=== PATIENT | female | born 1975 | race Caucasian/White ===

== ENCOUNTER 2019-05-20 12:20 | Emergency (ER) | payer OTHER, SELFPAY ==
--- NOTE | ~2019-05-20 | XR_ITS ---
XR ankle LT min 3V, XR tibia fibula LT 2V 05/20/2019 12:57 INDICATION: Right leg pain PROCEDURE: 4 views left ankle and 2 views left tibia/fibula COMPARISON: No prior studies for comparison. FINDINGS: Fracture, dislocation or subluxation is not identified. There are small degenerative calcan eal enthesophytes. The soft tissues appear within normal limits. No foreign bodies are identified. IMPRESSION: 1: NO ACUTE BONE OR JOINT ABNORMALITY IDENTIFIED. Reviewed, dictated and finalized at location A. FOLDING MACHINE OPERATOR IMPRESSION: 1: NO ACUTE BONE OR JOINT ABNORMALITY IDENTIFIED.
[2019-05-20 12:31] VITALS: BP 122/78; PULSE 116; RESP 18; TEMP 36.5; O2SAT 98
--- NOTE | 2019-05-20 12:50 | ED.LOWEXIN ---
HPI - Extremity Injury (Lower) General Chief Complaint: Extremity Injury, Lower Stated Complaint: L ANKLE INJURY Time Seen by Provider: 05/20/19 12:31 Source: patient Mode of arrival: wheelchair Limitations: no limitations History of Present Illness HPI Narrative: This is a 43 year old female that presents to the ER for left lower extremity injury just prior to arrival. Reports she was getting out of bed and tripped and fell forward. Reports hitting the back of her leg on the metal bed frame. Reports since she has had pain around her Achilles tendon. Denies decreased ROM or numbness. Related Data Home Medications Medication Instructions Recorded Confirmed insulin glargine [Lantus U-100 SUBCUT 05/20/19 Insulin] lisinopril 05/20/19 metformin mg 05/20/19 sertraline mg 05/20/19 Allergies Allergy/AdvReac Type Severity Reaction Status Date / Time No Known Allergies Allergy Unverified 05/20/19 12:34 Review of Systems Review of Systems: Narrative: CONSTITUTIONAL: Denies fever SKIN: Denies rash MUSCULOSKELETAL: Reports joint pain, and myalgia. NEUROLOGIC: Denies numbness, or weakness. All systems reviewed & are unremarkable except as noted in HPI and below PMFSH Past Medical History Medical History (Updated 05/20/19 @ 14:43 by Lucie Pryor PA-C) History of anxiety History of hypertension Surgical History Surgical History (Updated 05/20/19 @ 13:33 by Lucie Pryor PA-C) History of dilation and curettage History of tubal ligation Social History Social History (Updated 05/20/19 @ 13:33 by Lucie Pryor PA-C) Smoking status: Never smoker Gender identity (if verbalized by the patient): Female Exam Narrative: Exam Narrative: GENERAL: Well-appearing, well-nourished, and in no acute distress. HEAD: Normocephalic, atraumatic. EYES: EOMI. EXTREMITIES: Normal range of motion. Mild edema and bruising of left Achilles tendon at insertion. Obvious defect of Achilles tendon. No plantar flexion noted on Inman test SKIN: Warm, dry, no rash. NEURO: No focal deficits. Alert and oriented x3. PSYCH: Normal mood and affect Course Consultations Consultation #1: Spoke with Dr. Dixon about patient work-up will follow-up in clinic Date: 05/20/19 Time: 14:42 Vital Signs Vital signs: Vital Signs Temperature 97.7 F 05/20/19 12:31 Pulse Rate 116 H 05/20/19 12:31 Respiratory Rate 18 05/20/19 12:31 Blood Pressure 122/78 05/20/19 12:31 Pulse Oximetry 98 05/20/19 12:31 Temperature 97.7 F 05/20/19 13:42 Pulse Rate 116 H 05/20/19 12:31 Respiratory Rate 18 05/20/19 12:31 Blood Pressure 122/78 05/20/19 12:31 Pulse Oximetry 98 05/20/19 12:31 MDM - Extremity Injury (Lower) MDM Narrative Medical decision making narrative: Patient presents emergency department for left Achilles tendon pain and swelling after injury today. Mild edema and bruising around the insertion of the Achilles tendon with obvious palpable defect. No plantar flexion noted on Inman test. Left ankle and tib-fib x-rays are without acute changes. Patient will be placed in a splint and given crutches for partial or complete Achilles tendon rupture. Spoke with Dr. Dixon about patient work-up will follow-up in clinic Imaging Data Radiologist's impression: ITS Impressions Ankle X-Ray 05/20/19 13:03 IMPRESSION: 1: NO ACUTE BONE OR JOINT ABNORMALITY IDENTIFIED. Tibia/Fibula X-Ray 05/20/19 13:03 IMPRESSION: 1: NO ACUTE BONE OR JOINT ABNORMALITY IDENTIFIED. Critical Care Time Critical Care Time Critical Care Time: No Discharge Plan Discharge Clinical Impression: Achilles tendon rupture Qualifiers: Encounter type: initial encounter Laterality: left Qualified Code(s): S86.012A - Strain of left Achilles tendon, initial encounter Patient Disposition: Home, Self-Care Condition: Stable Instructions: Achilles Tendon Rupture (ED) Additional Instructions
[2019-05-20 13:42] VITALS: TEMP 36.5
[2019-05-20 14:42] VITALS: BP 132/71; PULSE 86; RESP 18; O2SAT 99
== END 2019-05-20 15:44 | disposition home or self-care (01) ==
PROVIDERS: Emergency Provider Emergency Medicine; PCP Family Medicine
DX: S86.012A Strain of left Achilles tendon, initial encounter (principal); I10 Essential (primary) hypertension; F41.9 Anxiety disorder, unspecified; W01.190A Fall on same level from slipping, tripping and stumbling with subsequent striking against furniture, initial encounter
CPT/HCPCS: 29515; 73590; 73610; 99284; A9270

== ENCOUNTER 2019-05-30 14:41 | Outpatient (CLI) | payer OTHER, SELFPAY ==
--- NOTE | ~2019-05-30 | MR_ITS ---
EXAMINATION: MR ankle LT wo con DATE: 05/30/2019 15:27 INDICATION: Left ankle pain. TECHNIQUE: Magnetic resonance imaging (MRI) of the left ankle was performed without intravenous contr ast. Sequences included sagittal PD-weighted FS FSE, sagittal PD-weighted FSE, coronal PD-weighted FS FSE, coronal PD-weighted FSE, axial PD-weighted FS FSE, and axial PD-weighted FSE. COMPARISON: Left ankle radiographs 05/20/2019 FINDINGS: Medial ankle ligaments: There are changes of prior sprain of superficial component of the deltoid ligament characterized by t hickening and increased signal intensity. The deep component of the deltoid ligament is intact. Lateral ankle ligaments: Anterior talofibular ligament is thin. There are changes of prior sprain of calcaneofibular ligament characterized by thickening and increased signal intensity. Posterior talofibular ligament is normal. There are changes of prior sprain of anterior tibiofibular ligament characterized by thickening and increased signal intensity. Posterior tibiofibular ligament is normal. Tendons: The anterior and medial ankle tendons are normal. The peroneal tendons are normal. There is Achilles tendinopathy characterized by thickening and increased signal intensity. There is a complete tear of Achilles tendon 7 cm proximal to the distal insertion with tendon gap spanning 1.7 cm. The proximal e nd of the torn tendon is only partially included. The distal end of the torn tendon is partially torn for 4 cm. Plantar fascia: Central band of plantar fascia demonstrates thickening and increased signal intensity. There is an en thesophyte at the calcaneal attachment. Bones/other: Bone alignment is normal. No fracture. The talar dome is normal. Fluid: There is no joint effusion. There is subcutaneous edema about the ankle. IMPRESSION: 1. Noninsertional complete tear of Achilles tendon. 2. Changes of prior medial and lateral ankle sprains. 3. Plantar fasciitis. Reviewed, dictated and finalized at location A. CHANGE CREW MEMBER
== END 2019-05-30 14:42 | disposition home or self-care (01) ==
PROVIDERS: PCP Family Medicine; Visit Provider Orthopaedic Surgery
DX: M25.572 Pain in left ankle and joints of left foot (principal); M72.2 Plantar fascial fibromatosis
CPT/HCPCS: 73721

== ENCOUNTER 2020-02-21 07:30 | Outpatient (RCR) | payer OTHER, SELFPAY ==
--- NOTE | 2019-12-31 08:34 | PTOPEVAL ---
PHYSICAL THERAPY EVALUATION AND PLAN OF CARE Thank you for referring Minerva Geronimo to [facility].? The patient is scheduled to be seen for therapy?2x/week for 4 weeks followed by reassessment to determine further needs. Please review, sign, date and return this plan of care JEOVANNY. I agree with and certify that the following plan of care is medically necessary. Referring Physician Date Evaluation Diagnosis left achilles tendon rupture Onset 05/2019 Subjective Information Minerva is here today with Query Text:As Reported By Patient/ achilles rupture of left foot. Family Sates that she stepped wrong and fell and his the back of her heel on the metal frame and felt a pop. No surgery. Continues to have pain. Usually in pain all the time. Sometimes is unable to put no weight on the foot at all and has been down to no pain. Has to go down stairs sideways, unable to run, limited cleaning in her home with squatting and getting on/off floor are very difficult. Self Report Pain Assessment Left Ankle(s) Reported Pain Level 6 Pain Description Dull,Pulling Pain Frequency Chronic,Intermittent Lowest Pain Intensity 1 Greatest Pain Intensity 9 Ankle/Foot Range of Motion Left Ankle Dorsiflextion With Knee Flexed 8 Range of Motion - Active Ankle Plantarflexion Range of Motion - 35 Active Query Text: Ankle Eversion Range of Motion - Active 14 Ankle Inversion Range of Motion - 26 Passive Ankle Range of Motion Comments tender all directions with PF feeling the worst and eversion hurting worse than inversion Hip Strength Left Hip Flexion Strength 5 Normal Hip Abduction Strength 4 Good Ankle Strength Left Ankle Dorsiflexion Strength 4 Good Ankle Plantarflexion Strength 2 Poor Ankle Eversion Strength 4 Good Ankle Inversion Strength 4+ Good + Muscle Length Testing Piriformis w/Hip Flexion >90 Degrees (L) Moderate Tightness Left Hamstring Length -20 Query Text:(90 - 90 Position) Gastrocnemius Length (L) Moderate Tightness Palpation left achilles tendon: palpable calcification of tendon with tendness to palpation noted Gait Pattern Assessment Gait Pa
--- NOTE | 2020-01-24 07:25 | PCPTNOTE ---
Patient called & cancelled scheduled appointment this date due to not feeling well.
--- NOTE | 2020-01-29 07:50 | PCPTNOTE ---
Patient called & cancelled scheduled appointment this date due to being sick.
--- NOTE | 2020-01-31 08:19 | PTOPEVAL ---
PHYSICAL THERAPY PLAN OF CARE UPDATE Thank you for referring Minerva Geronimo to [facility].? The patient is scheduled to be seen for therapy? 1x/week for 4 weeks. Please review, sign, date and return this plan of care JEOVANNY. I agree with and certify that the following plan of care is medically necessary. Referring Physician Date Progress Diagnosis left achilles tendon rupture Onset 05/2019 Subjective Information Minerva is participating in PT Query Text:As Reported By Patient/ with achilles rupture of left Family foot. Sates that she feels almost normal. Self Report Pain Assessment Left Ankle(s) Reported Pain Level 0 Pain Description Dull,Soreness Pain Frequency Chronic,Intermittent Greatest Pain Intensity 3 Pain Score Pain Score 0: Self Report Additional Pain Score Comments hurting today Lower Extremity Range of Motion Ankle/Foot Range of Motion Left Ankle Dorsiflextion With Knee Flexed 13 Range of Motion - Active Ankle Plantarflexion Range of Motion - 52 Active Query Text: Ankle Eversion Range of Motion - Active 18 Ankle Inversion Range of Motion - 41 Passive Ankle Range of Motion Comments . Lower Extremity Muscle Strength Testing Hip Strength Left Hip Flexion Strength 5 Normal Hip Abduction Strength 4+ Good + Hip Strength Comments single leg squat: performed from 28inch seat height, unable from standard chair heigth (18inches) Ankle Strength Left Ankle Dorsiflexion Strength 5 Normal Ankle Plantarflexion Strength 3- Fair - Ankle Eversion Strength 5 Normal Ankle Inversion Strength 5 Normal Ankle Strength Comments continues to be unable to perform single leg heel raise, but is not able to perform left ECCENTRIC plantar flexion ; Muscle Length Testing Muscle Length Testing Piriformis w/Hip Flexion >90 Degrees (L) Mild Tightness Left Hamstring Length -20 Query Text:(90 - 90 Position) Gastrocnemius Length (L) Moderate Tightness Gait Assessment 2 Minute Walk Total Distance Walked (feet) 454 2 Minute Walk Gait Speed Score (feet/ 3.78 second) 2 Minute Walk Test Comments very mild antalgia on left at end of stance phase Stair Climbing Assessment Stair Climbing Assessment Stair Climbing Assistive Devices Railings Weight Bearing Status - Left As Tolerated Maintains Weight Bearing Status Yes Number of Steps Clim
--- NOTE | 2020-02-14 07:25 | PCPTNOTE ---
Patient called & cancelled scheduled appointment this date due to having car issues.
--- NOTE | 2020-02-28 07:51 | PCPTNOTE ---
Patient did not show up for scheduled appointment this date. Called and left a message. This was her last scheduled appointment and if she would like to reschedule she will need to call.
--- NOTE | 2020-03-05 13:01 | PCPTNOTE ---
PHYSICAL THERAPY DISCHARGE NOTE Patient:Minerva Geronimo Date of :1975 Patient has not returned for any further treatments since 02/21/2020, therefore she will be discharged at this time. Patient?s initial visit was on 12/31/2019. Her last re-assessment note was on 01/31/2020. The goals have been partially met. Thank you for referring this patient to [facility]. Please review, sign, date and return this discharge summary JEOVANNY. I have been updated about the patient's current status and I agree with discharge from the above service at this time. Referring Physician Date
== END 2020-03-06 08:48 | disposition home or self-care (01) ==
LOC: ANHPT 07:30
PROVIDERS: PCP Family Medicine
DX: S86.012D Strain of left Achilles tendon, subsequent encounter (principal)
CPT/HCPCS: 97035; 97110; 97140; 97161

== ENCOUNTER 2020-12-26 20:53 | Emergency (ER) | payer OTHER, SELFPAY ==
--- NOTE | ~2020-12-26 | XR_ITS ---
XR wrist RT min 3V, XR hand RT min 3V 12/26/2020 21:23 INDICATION: Pain and swelling of the right hand and wrist after fall PROCEDURE: 4 views right wrist and 3 views right hand COMPARISON: No prior studies for comparison. FINDINGS: Fracture, dislocation or subluxation is not identified. The soft tissues appear within norm al limits. No foreign bodies are identified. IMPRESSION: 1: NO ACUTE BONE OR JOINT ABNORMALITY IDENTIFIED. Reviewed, dictated and finalized at location A. IMPRESSION: 1: NO ACUTE BONE OR JOINT ABNORMALITY IDENTIFIED.
[2020-12-26 20:55] VITALS: BP 151/101; PULSE 130; RESP 16; TEMP 36.3; O2SAT 98
[2020-12-26 21:03] VITALS: BP 156/90; PULSE 114; RESP 20; O2SAT 98
--- NOTE | 2020-12-26 21:38 | ED.UPPEXIN ---
HPI - Extremity Injury (Upper) General Chief Complaint: Extremity Injury, Upper Stated Complaint: possible broken hand Time Seen by Provider: 12/26/20 21:04 Source: patient Mode of arrival: ambulatory Limitations: no limitations History of Present Illness HPI narrative: This is a 45 year old female that presents to the ER for right hand injury sustained just prior to arrival. Reports she slipped and fell down about 4 steps. Reports an injury to the right hand. Reports swelling and pain especially to the right first finger. Denies hitting her head, loss of consciousness, other injuries, or numbness. Related Data Home Medications Medication Instructions Recorded Confirmed insulin glargine [Lantus U-100 SUBCUT 05/20/19 05/22/19 Insulin] lisinopril 05/20/19 05/22/19 metformin mg 05/20/19 05/22/19 sertraline mg 05/20/19 05/22/19 Allergies Allergy/AdvReac Type Severity Reaction Status Date / Time No Known Allergies Allergy Verified 12/26/20 21:05 Review of Systems Review of Systems: CONSTITUTIONAL: Denies fever MUSCULOSKELETAL: Reports joint pain, and myalgia. NEUROLOGIC: Denies numbness All systems reviewed & are unremarkable except as noted in HPI and below PMFSH Past Medical History Medical History (Updated 12/26/20 @ 21:50 by Lucie Pryor PA-C) Achilles rupture, left (05/20/19) Achilles tendinitis of left lower extremity Diabetes Headache History of anxiety History of hypertension Surgical History Surgical History History of dilation and curettage History of tubal ligation Family History Family History Other Cancer Diabetes mellitus Hypertension Social History Social History Smoking status: Never smoker Alcohol intake: never Gender identity (if verbalized by the patient): Female Exam Narrative: GENERAL: Well-appearing, well-nourished, and in no acute distress. HEAD: Normocephalic, atraumatic. EYES: EOMI. CHEST: Clear to auscultation. No respiratory distress. No wheezes rales or rhonchi HEART: Regular rate and rhythm. No murmur heard. Normal peripheral pulses. EXTREMITIES: Normal range of motion. Mild edema about the right first metacarpal, tender to palpation. Normal radial pulses. Normal sensation SKIN: Warm, dry, no rash. NEURO: No focal deficits. Alert and oriented x3. PSYCH: Normal mood and affect Course Vital Signs Vital signs: Vital Signs Temperature 97.3 F L 12/26/20 20:55 Pulse Rate 130 H 12/26/20 20:55 Respiratory Rate 16 12/26/20 20:55 Blood Pressure 151/101 H 12/26/20 20:55 Pulse Oximetry 98 12/26/20 20:55 Temperature 97.3 F L 12/26/20 20:55 Pulse Rate 114 H 12/26/20 21:03 Respiratory Rate 20 12/26/20 21:03 Blood Pressure 156/90 H 12/26/20 21:03 Pulse Oximetry 98 12/26/20 21:03 MDM - Extremity Injury (Upper) MDM Narrative Medical decision making narrative: Patient presents to the emergency department after a fall down a couple of steps with right hand injury. She is neurovascularly intact. Denies hitting her head or loss of consciousness. Denies any other injuries. Right hand and wrist x-rays are without acute osseous abnormalities. Patient placed in Reynaldo wrap and will be given with hand surgery for follow-up if needed. She is stable and felt appropriate for further outpatient evaluation. She was given warnings to return to the ER Imaging Data Radiologist's impression: ITS Impressions Hand X-Ray 12/26/20 21:27 IMPRESSION: 1: NO ACUTE BONE OR JOINT ABNORMALITY IDENTIFIED. Wrist X-Ray 12/26/20 21:27 IMPRESSION: 1: NO ACUTE BONE OR JOINT ABNORMALITY IDENTIFIED. Critical Care Time Critical Care Time Critical Care Time: No Discharge Plan Discharge Clinical Impression: Sprain of hand, right Qualifiers: Encounter type: i
[2020-12-26] MEDS: HYDROcodone/acetaminophen (*CRX) 5-325 MG TABLET 1 TAB PO (21:39)
[2020-12-26 22:03] VITALS: BP 152/91; PULSE 105; RESP 27; O2SAT 98
== END 2020-12-26 22:04 | disposition home or self-care (01) ==
PROVIDERS: Emergency Provider Emergency Medicine; PCP Family Medicine
DX: S63.91XA Sprain of unspecified part of right wrist and hand, initial encounter (principal); E11.9 Type 2 diabetes mellitus without complications; I10 Essential (primary) hypertension; F41.9 Anxiety disorder, unspecified; Z79.4 Long term (current) use of insulin; W10.9XXA Fall (on) (from) unspecified stairs and steps, initial encounter
CPT/HCPCS: 73110; 73130; 99283; A9270

== ENCOUNTER 2023-02-01 07:11 | Outpatient (CLI) | payer OTHER, SELFPAY ==
--- NOTE | ~2023-02-01 | MM_ITS ---
EXAMINATION: MM screening [facility] BI w mt HISTORY: Screening TECHNIQUE: Craniocaudal and mediolateral oblique 3-D tomosynthesis images were obtained and synthetic 2-D images were generated. CAD analysis was submitted and interpreted. COMPARISON: Comparison to multiple prior studies sequentially, with oldest reviewed study dated 01/16. BREAST PARENCHYMAL COMPOSITION: There are scattered areas of fibroglandular density. FINDINGS: There is no evidence of suspicious mass, calcification, or architectural distortion to sugg est malignancy in either breast. There has been no suspicious interval change. IMPRESSION: 1. No mammographic evidence of malignancy. 2. Recommend routine screening mammography in one year. BI-RADS Category 1: Negative Reviewed, dictated and finalized at location A.
== END 2023-02-01 07:12 | disposition home or self-care (01) ==
LOC: CHSIMG 07:12
PROVIDERS: PCP Family Medicine; Visit Provider Family Medicine
DX: Z12.31 Encounter for screening mammogram for malignant neoplasm of breast (principal)
CPT/HCPCS: 77063; 77067

== ENCOUNTER 2023-08-25 09:37 | Outpatient (CLI) | payer OTHER, SELFPAY ==
--- NOTE | ~2023-08-25 | MR_ITS ---
MRI of the left knee Clinical history: Pain Technique: Coronal proton density and proton density-weighted images, sagittal proton-density and T2 fat-sat images, and axial proton-density fat-saturated images were acquired. Findings: Anterior and posterior cruciate ligaments are intact. Medial collateral ligament and the la teral collateral ligament complex are intact. Popliteus tendon is intact. Medial and lateral menisci are intact, without evidence of tear. There is moderate chondral thinning along the medial femoral condyle. Lateral compartment articular c artilage is intact. There is mild chondral malacia along the lateral patellar facet. Extensor mechanism is intact. No significant joint effusion or Caputo's cyst. Impression: Chondromalacia of the medial femoral condyle and patella, as detailed above. Reviewed, dictated and finalized at location M. Impression: Chondromalacia of the medial femoral condyle and patella, as detailed above.
== END 2023-08-25 09:38 | disposition home or self-care (01) ==
LOC: CHSIMG 09:39
PROVIDERS: PCP Family Medicine; Visit Provider Family Medicine
DX: M25.562 Pain in left knee (principal); G89.29 Other chronic pain; M94.262 Chondromalacia, left knee
CPT/HCPCS: 73721